=== PATIENT | female | born 1975 | race African-American/Black ===

== ENCOUNTER → 2016-09-21 | Day surgery (SDC) | payer BC ==
[~2016-09-21] VITALS: Ht 157.5 cm; Wt 88.5 kg
[~2016-09-21] MED LIST: CHLOROPROCAINE PRES. FREE 3% INJ 20 ML VIAL (J2400) As Ordered ONE; KETAMINE HCL 200 MG/20 ML VIAL As Ordered ONE; LEXA1TAB PO; LR 1,000 ML IV ONE; LR 1,000 ML IV SCH; METOCLOPRAMIDE INJ 10MG/2ML VIAL (J2765) IV PRN; MIDAZOLAM INJ 2 MG/2 ML VIAL (J2250) As Ordered ONE; MORPHINE 2 MG/ML 1ML SYRINGE IV PRN; NORCO, ANEXSIA 5/325MG TABLET (HYDROcodone/ACETAMINOPHEN) PO PRN; NORT10CA2 PO; NORT10SO PO; ONDANSETRON 4MG/2ML VIAL (J2405) IV PRN; PERCOCET 5MG/325MG TAB PO PRN; PHEN-223 PO; PROP40TA PO; PROPOFOL 200 MG/20 ML VIAL As Ordered ONE; XANA0.5T PO; fentaNYL 100 MCG/2 ML INJECTION (J3010) As Ordered ONE; fentaNYL 100 MCG/2 ML INJECTION (J3010) IV PRN
[2016-09-21 20:15] VITALS: BP 126/84
--- NOTE | 2016-09-21 22:26 | RO ---
DATE OF PROCEDURE: 09/21/2016 PREPROCEDURE DIAGNOSIS: Pilonidal cyst. POSTPROCEDURE DIAGNOSIS: Pilonidal cyst. OPERATIVE PROCEDURE: Pilonidal cystectomy. SURGEON: John Castillo MD CLIENT SUPPORT PROFESSIONAL: None. ANESTHESIA: Spinal with sedation. COMPLICATIONS: None. INDICATION FOR THE PROCEDURE: The patient a 41-year-old female presents with a history of pilonidal cyst that has been lanced numerous times over the past few years. Most recently was treated about 6 weeks ago with antibiotics. She is here for resection to prevent this from coming back again. Recommendation was to proceed with excisional pilonidal cystectomy. Risks and benefits of the procedure not limited to but including bleeding, infection, cyst recurrence and need further surgery were discussed in detail with the patient and informed was obtained and procedure was planned. DESCRIPTION OF PROCEDURE: The patient was brought back to operating room three. After sufficient sedation, the perineal area was sterilely prepped and draped with Betadine. Next, a time-out was done to confirm proper patient and proper procedure. Following that, an elliptical incision, approximately 5 cm in length was created around the sinus tract openings. The incision was carried down circumferentially to the presacral fascia. This was all done with electrocautery and the cyst and sinus tracts were all resected intact in one piece. Electrocautery was used to control hemostasis in the wound bed. The wound was then packed with a 4 x 4 and covered with tape and the patient was awakened from anesthesia and sent to PACU in stable condition.
== END | disposition home or self-care (01) ==
LOC: M SDC 12:04
PROVIDERS: ATTEND Surgery
DX: L05.91 Pilonidal cyst without abscess (principal); I10 Essential (primary) hypertension; F41.9 Anxiety disorder, unspecified; F32.9 Major depressive disorder, single episode, unspecified; Z87.891 Personal history of nicotine dependence; K50.90 Crohn's disease, unspecified, without complications; K58.9 Irritable bowel syndrome, unspecified; G43.909 Migraine, unspecified, not intractable, without status migrainosus; Z90.710 Acquired absence of both cervix and uterus; E66.9 Obesity, unspecified; Z79.899 Other long term (current) drug therapy
CPT/HCPCS: 11770; 88304; J0690; J2250; J2400; J2405; J2765; J3010

== ENCOUNTER → 2017-11-29 | Outpatient (CLI) | payer OTHER | LOC: M LAB 09:36 | DX: S60.011A Contusion of right thumb without damage to nail, initial encounter (principal); X58.XXXA Exposure to other specified factors, initial encounter; Y92.89 Other specified places as the place of occurrence of the external cause | CPT/HCPCS: 73140 ==

== ENCOUNTER 2018-11-13 09:55 | Emergency (ER) | payer MEDICAID, OTHER ==
[~2018-11-13] VITALS: Ht 160 cm; Wt 79.5 kg
[2018-11-13 09:55] VITALS: BP 158/90
[~2018-11-13 09:55] MED LIST changes: -PROP60TA18
[2018-11-13] MEDS ORDERED: PROP60TA18 (10:00)
== END 2018-11-13 10:50 | disposition left against medical advice (07) ==
LOC: M ED 09:55
DX: Z53.29 Procedure and treatment not carried out because of patient's decision for other reasons (principal)

== ENCOUNTER → 2018-11-13 | Outpatient (CLI) | payer MEDICAID ==
[~2018-11-13] MED LIST changes: -CHLOROPROCAINE PRES. FREE 3% INJ 20 ML VIAL (J2400) As Ordered ONE; -KETAMINE HCL 200 MG/20 ML VIAL As Ordered ONE; -LR 1,000 ML IV ONE; -LR 1,000 ML IV SCH; -METOCLOPRAMIDE INJ 10MG/2ML VIAL (J2765) IV PRN; -MIDAZOLAM INJ 2 MG/2 ML VIAL (J2250) As Ordered ONE; -MORPHINE 2 MG/ML 1ML SYRINGE IV PRN; -NORCO, ANEXSIA 5/325MG TABLET (HYDROcodone/ACETAMINOPHEN) PO PRN; -ONDANSETRON 4MG/2ML VIAL (J2405) IV PRN; -PERCOCET 5MG/325MG TAB PO PRN; -PHEN-223 PO; +PHEN30CA2 PO; -PROP40TA PO; +PROP40TA62 PO; +PROP60TA18; -PROPOFOL 200 MG/20 ML VIAL As Ordered ONE; -fentaNYL 100 MCG/2 ML INJECTION (J3010) As Ordered ONE; -fentaNYL 100 MCG/2 ML INJECTION (J3010) IV PRN
--- NOTE | 2018-11-13 16:04 | REP ---
Clinical: Pain. Recent insect bite. Technique: AP, lateral, bilateral oblique views of the left hand. Findings: No definite acute fracture dislocation. Small bony densities adjacent to the base of the fifth metacarpal bone are nonspecific but may represent sequelae of old injury. Correlation with point of tenderness is recommended to exclude acute injury. No subcutaneous emphysema. No obvious significant swelling. Impression: No definite acute injury. As above. Correlation required. Electronically Signed by Emmanuel Muse MD 11/13/2018 03:56 P
== END ==
LOC: M RAD 14:58
PROVIDERS: ATTEND Family Medicine Adult Medicine
DX: M79.642 Pain in left hand (principal)